=== PATIENT | male | born 1970 | race Two or more races ===

== ENCOUNTER 2025-02-18 20:37 | Emergency (ER) | payer OTHER, MEDICAID ==
[~2025-02-18] VITALS: Ht 165.1 cm; Wt 88.1 kg
[~2025-02-18 20:37] MED LIST: ACCU-CHEK COMFORT CURVE STRIP VI ONE; DEXTROSE (50%) 50ML SYRG IV ONE
[2025-02-18] MEDS ORDERED: DEXTROSE (50%) 50ML SYRG IV ONE (20:45)
[2025-02-18] MEDS ORDERED: ACCU-CHEK COMFORT CURVE STRIP VI ONE (20:45)
[2025-02-18 21:29] LABS: Alanine Aminotransferase 14 U/L (7-40); Albumin 4.0 g/dL (3.2-4.8); Alkaline Phosphatase 74 U/L (46-116); Anion Gap 9 (5-15); BUN/Creatinine Ratio 19.8 (10.0-20.0); Bilirubin, Total 0.4 mg/dL (0.2-1.0); Blood Urea Nitrogen 34 mg/dL (9-23); Calcium 9.1 mg/dL (8.7-10.4); Carbon Dioxide 27 mmol/L (20-31); Chloride 105 mmol/L (98-107); Glucose 128 mg/dL (74-106); Potassium 3.1 mmol/L (3.5-5.1); Sodium 141 mmol/L (136-145); Total Protein 6.5 g/dL (5.7-8.2)
--- NOTE | 2025-02-18 21:35 | ECG ---
[facility] Test Date: 2025-02-18 Test Time: 20:42:13 Pat Name: BRUNILDA FERRER Department: [facility] ED Patient ID: [facility]-[id number] Room: Gender: M Group Sales Manager: simran : 1970 Requested By: EMERGENCY EMERGENCY Order Number: [id number] Reading MD: Edilberto Lopes Measurements Intervals [place] Rate: 63 P: 43 MA: 192 QRS: -47 QRSD: 126 T: 61 QT: 457 QTc: 468 Interpretive Statements Sinus rhythm Nonspecific IVCD with LAD Borderline ST elevation, anterior leads Electronically Signed On 02-19-2025 18:24:35 PDT by Edilberto Lopes Please click the below link to view image of tracing.
--- NOTE | 2025-02-18 21:44 | ED.PDOC ---
History of Present Illness HPI Comments 54-year-old male is brought in by EMS from private residence for chief complaint of generalized weakness and hypoglycemia. Per EMS report, significant history for CVA with right-sided deficits, DM with insulin dependence, and HTN. Patient called after beginning to endorsed on feeling weak and checking and noticing his blood sugar being low after taking his insulin, this evening. He was found in his home sitting down, finish a blood glucose readings of 129 and 131. All other vitals were noted to have been stable within normal limits, with the exception of patient recorded at 54. He was given 1 mg of atropine EN route along with a saline bolus, with heart rate improving to his mid 60s range. Patient denies having any chest pain, shortness of breath, nausea, vomiting, further associated symptoms. REVIEW OF SYSTEMS: General: No fever, no chills, HEENT: No neck pain, no blurred vision Cardiac: No chest pain. No palpitations. Lungs: No shortness of breath, GI: No abdominal pain, no vomiting Musculoskeletal: No joint pain , no back pain Skin: No rash, no wound Neuro: Positive generalized Weakness. No headache, no dizziness, no syncope PHYSICAL EXAM: General: Awake, alert and oriented. No acute distress. Skin: Skin in warm, dry and intact without rashes or lesions. HEENT: The head is normocephalic and atraumatic. Conjunctivae are clear without exudates or hemorrhage. Sclera is non-icteric. Neck: Normal range of motion. No JVD. Cardiac: Regular rate Respiratory: No signs of respiratory distress. No Stridor. Extremities: Upper and lower extremities are atraumatic in appearance without deformity. Neurological: The patient is awake, alert and oriented to person, place, and time with normal speech. Speech is clear. There is no facial asymmetry. Psychiatric: Appropriate mood and affect. Good judgement and insight. Chief Complaint: General Weakness Time Seen by MD: 20:40 Reviewed Notes: Nurses Notes, Pick Pack Worker Notes, Medications, Allergies Allergies: Coded Allergies: NO KNOWN ALLERGIES (Unverified , 02/18/25) Information Source: Patient Mode of Arrival: EMS Severity: Moderate Timing: Months Duration: Since onset Prehospital treatment: None Past Medical History PAST MEDICAL HISTORY: CVA (Refer right-sided deficits), DM, HTN Surgical History: Denies all surgeries Family History Family History: Unknown Social History Smoker: Non-Smoker Alcohol: Denies ETOH Use Drugs: Denies Drug Use Lives In: Home Was a procedure done? Was a procedure done?: No EKG EKG : Pulse Rate (adult): 63 [place]: Normal Cardiac Rhythm: NSR Block: None Hypertrophy: None ST: Normal Comments No STEMI Differential Dx Considerations may include: Differential diagnosis considered includes but not limited to intracranial hemorrhage, stroke, head injury, seizure, metabolic disturbance, electrolyte imbalance, infection, substance intoxication, psychiatric cause, other systemic illness, other X-Ray, Labs, Meds, VS Vital Signs Date Time Temp Pulse Resp B/P (MAP) Pulse Ox O2 Delivery O2 Flow Rate FiO2 02/19/25 01:59 63 02/19/25 00:59 50 20 100 Room Air 02/19/25 00:59 97.5 50 20 149/71 (97) 100 97.5 02/18/25 20:42 63 02/18/25 20:37 97.8 65 18 133/77 100 97.8 Lab Test 02/18/25 21:03 Range/Units White Blood Count 5.8 4.4-10.8 10^3/uL Red Blood Count 3.78 L 4.5-5.90 10^6/uL Hemoglobin 12.1 L 13.5-17.5 g/dL Hematocrit 34.6 L 41.0-53.0 % Mean Corpuscular Volume 91.6 80.0-100.0 fL Mean Corpuscular Hemoglobin 32.0 28.0-32.0 pg Mean Corpuscular Hemoglobin Concent 34.9 32.0-36.0 g/dL Red Cell Distribution Width 14.8 H 11.8-14.3 % Platelet Count 180 140-450 10^3/uL Mean Platelet Volume 8.6 6.9-10.8 fL Neutrophils (%) (Auto) 77.5 37.0-80.0 % Lymphocytes (%) (Auto) 12.2 10.0-50.0 % Monocytes (%) (Auto) 7.4 0.0-12.0 % Eosinophils (%) (Auto) 2.0 0.0-7.0 % Basophils (%) (Auto) 0.9 0.0-2.0 % Neutrophils # (Auto) 4.5 1.6-8.6 10 ^3/uL Lymphocytes # (Auto) 0.7 0.4-5.4 10 ^3/uL Monocytes # (Auto) 0.4 0-1.3 10 ^3/uL Eosinophils # (Auto) 0.1 0-0.8 10 ^3/uL Basophils # (Auto) 0.1 0-0.2 10 ^3/uL Nucleated Red Blood Cells 0.3 % Sodium Level 141 136-145 mmol/L Potassium Level 3.1 L 3.5-5.1 mmol/L Chloride Level 105 98-107 mmol/L Carbon Dioxide Level 27 20-31 mmol/L Anion Gap 9 5-15 Blood Urea Nitrogen 34 H 9-23 mg/dL Creatinine 1.72 H 0.700-1.30 mg/dL Glomerular Filtration Rate Calc 46 >90 mL/min BUN/Creatinine Ratio 19.8 10.0-20.0 Serum Glucose 128 H 74-106 mg/dL Calcium Level 9.1 8.7-10.4 mg/dL Total Bilirubin 0.4 0.2-1.0 mg/dL Aspartate Amino Transferase (AST) 20 13-40 U/L Alanine Aminotransferase (ALT) 14 7-40 U/L Alkaline Phosphatase 74 46-116 U/L Troponin I High Sensitivity 9 </=54 ng/L Total Protein 6.5 5.7-8.2 g/dL Albumin 4.0 3.2-4.8 g/dL Current Medications Medications (Trade) Dose Ordered Sig/Eze Route Start Time Stop Time Status Last Admin Sodium Chloride 1,000 ml @ 1,000 mls/hr Q1H ONCE IV 02/18/25 23:15 02/19/25 00:14 DC 02/18/25 23:15 Time of 1ST Reevaluation: 21:10 Reevaluation 1ST: Unchanged Patient Education/Counseling: Need For Follow Up Family Education/Counseling: No Family Present SEPSIS Sepsis Screen Date sepsis recognized/suspect: Feb 18, 2025 Time Sepsis recognized/suspect: 2036 Recent Procedure: No On Antibiotic Therapy: No Respiratory Rate >20: No Heart Rate >90: No Temp<36 C (96.8 F) or >38.3 C: No SBP <90 or MAP <65 mmHG: No New Acute Mental Status Change: No Is the patient on CPAP, BIPAP,: No Vital Signs Date Time Temp Pulse Resp B/P (MAP) Pulse Ox O2 Delivery O2 Flow Rate FiO2 02/19/25 01:59 63 02/19/25 00:59 50 20 100 Room Air 02/19/25 00:59 97.5 50 20 149/71 (97) 100 97.5 02/18/25 20:42 63 02/18/25 20:37 97.8 65 18 133/77 100 97.8 Laboratory Tests Test 02/18/25 21:03 White Blood Count 5.8 10^3/uL (4.4-10.8) Medications Medications Dose Ordered Sig/Eze Route Start Time Stop Time Status Last Admin Dose Admin Sodium Chloride 1,000 ml @ 1,000 mls/hr Q1H ONCE IV 02/18/25 23:15 02/19/25 00:14 DC 02/18/25 23:15 Departure 1 Departure Time of Disposition: 00:07 Impression: Primary Impression: Generalized weakness Additional Impressions: Hypokalemia CKD (chronic kidney disease) Disposition: HOME / SELF CARE / HOMELESS Condition: Stable Comments MDM: 54-year-old male with generalized weakness. Patient is well-appearing, nontoxic. Patient's symptoms improved during the ED observation. Vital signs stable. Patient is mildly hypokalemic. CMP shows likely CKD. Potassium replaced in the ED, patient administered 1 L normal saline bolus. Other Diagnostic results reviewed and are not urgently actionable. Patient is felt stable for discharge home. Patient advised to follow up with primary care provider promptly and return to the emergency department with any new, worsening or concerning symptoms. Extensive evaluation was performed in attempt to identify or rule out: (See differential diagnosis section) The following tests were ordered, and results were reviewed by me and discussed with patient: (See diagnostic results section) The following test were independently interpreted by me: EKG I reviewed and agreed with the following test results read by other providers: N/A I reviewed the following notes from the pt's past medical encounters: N/A Additional information was gathered from interviewing the following independent historians: EMS personnel Decision regarding hospitalization or escalation of hospital level of care: Risks and benefits of admission for further treatment of patient's condition was considered however due to patient's stable condition patient will be discharged to follow up closely or return to care for worsening of condition or inability to follow up. Critical Care Note Critical Care Time?: No Stability Stability form required: No Heart Score Heart Score: Heart Score Response (Comments) Value History N/A 0 EKG N/A 0 Age N/A 0 Risk Factors N/A 0 Troponin N/A 0 Total 0 I personally scribed for ESTRADA CRUZ MD ([email or web address]) on 02/18/25 at 21:44. Electronically submitted by Ankit Prather ([email or web address]). I personally scribed for ESTRADA CRUZ MD ([email or web address]) on 02/19/25 at 01:59. Electronically submitted by Ankit Prather ([email or web address]). ESTRADA CRUZ MD Feb 18, 2025 21:44
[2025-02-18] MEDS: SODIUM CHLORIDE 0.9% 1,000 ML IV ONE (23:15)
[2025-02-18 23:47] LABS: Hematocrit 34.6 % (41.0-53.0); Hemoglobin 12.1 g/dL (13.5-17.5); Mean Corpuscular Hemoglobin 32.0 pg (28.0-32.0); Mean Corpuscular Volume 91.6 fL (80.0-100.0); Nucleated Red Blood Cells % 0.3 %
[2025-02-19 00:59] VITALS: BP 149/71; RESP 20; TEMP 97.5; O2SAT 100
[2025-02-19 01:59] VITALS: PULSE 63
== END 2025-02-19 01:41 | disposition home or self-care (01) ==
LOC: ER 20:37 → EDBD 20:37 → ER 02-19 01:41
DX: I12.9 Hypertensive chronic kidney disease with stage 1 through stage 4 chronic kidney disease, or unspecified chronic kidney disease (principal); E11.22 Type 2 diabetes mellitus with diabetic chronic kidney disease; N18.9 Chronic kidney disease, unspecified; R53.1 Weakness; E87.6 Hypokalemia; Z86.73 Personal history of transient ischemic attack (TIA), and cerebral infarction without residual deficits
CPT/HCPCS: 36415; 80053; 82947; 84484; 85025; 93005; 96360; 99283; J7030

== ENCOUNTER 2025-04-25 20:57 | Emergency (ER) | payer OTHER, MEDICAID ==
[2025-04-25] MEDS ORDERED: EPINEPHrine HCL 1 MG/10 ML SYRG ONE (21:10)
== END 2025-04-25 21:27 | disposition left against medical advice (07) ==
LOC: ER 20:57
DX: R42 Dizziness and giddiness (principal); Z53.21 Procedure and treatment not carried out due to patient leaving prior to being seen by health care provider
CPT/HCPCS: 82947; J0169